=== PATIENT | female | born 1960 | race American Indian/Alaskan Native ===

== ENCOUNTER 2021-11-18 07:30 | Outpatient (CLI) | payer OTHER ==
[2021-11-18 08:34] LABS: Blood Urea Nitrogen 13 mg/dL (7-17)
--- NOTE | 2021-11-18 11:11 | Cat Scan Report ---
CT chest with contrast INDICATION : R59.0 LOCALIZED ENLARGED LYMPH NODES. TECHNIQUE: 80 mL of intravenous contrast administered. All CT scans at this location are performed using CT dose reduction for ALARA by means of automated exposure control. COMPARISON: None FINDINGS: Normal heart size. No significant coronary artery calcifications. Incidental aberrant righ t subclavian artery, normal variant but sometimes associated with dysphagia. No pathologic mediastina l adenopathy. There are several shotty and enlarged bilateral axillary lymph nodes. The lungs are clear. Limited imaging of the upper abdomen shows nothing acute. Mild degenerative changes in the spine with nothing acute. IMPRESSION: 1. Bilateral axillary adenopathy as outlined above. No pathologic mediastinal or hilar adenopathy. 2. Clear lungs. Signer Name: Herb Ramires MD Signed: 11/18/2021 11:07 AM Workstation Name: [id number]
== END 2021-11-18 07:31 | disposition home or self-care (01) ==
LOC: CT 07:30
PROVIDERS: ATTEND Internal Medicine
DX: R59.0 Localized enlarged lymph nodes (principal); M47.814 Spondylosis without myelopathy or radiculopathy, thoracic region
CPT/HCPCS: 36415; 71260; 82565; 84520; Q9967